=== PATIENT | female | born 1975 | race Caucasian/White ===

== ENCOUNTER 2021-10-01 12:48 | Inpatient (IN) ==
[2021-10-01 13:23] LABS: Basophils % 0.5 %; Eosinophils % 0.3 %; Hematocrit 49.9 % (35.3-44.9); Hemoglobin 15.4 g/dL (11.5-15.4); Immature Granulocytes % 0.5 % (0-4); Lymphocytes # 2.4 K/mcL (0.6-4.6); Lymphocytes % 26.7 %; Mean Corpuscular HGB Conc 30.9 g/dL (31.6-35.5); Mean Corpuscular Volume 87.4 fL (83.0-100.0); Mean Platelet Volume 10.9 fL (9.4-12.4); Monocytes # 0.7 K/mcL (0.0-1.3); Monocytes % 7.5 %; Neutrophils # 5.7 K/mcL (1.6-8.9); Platelet Count 286 K/mcL (140-400); Red Blood Count 5.71 M/mcL (3.82-4.97); Red Cell Distribution Width 14.5 % (11.5-14.5); Segmented Neutrophils % 64.5 %; White Blood Count 8.8 K/mcL (4.3-11.1)
[2021-10-01 13:46] LABS: Albumin/Globulin Ratio 1.1 (1.1-2.2); Bilirubin,Direct 0.2 mg/dL (0.0-0.2); Bilirubin,Indirect 0.8 mg/dL (0.0-1.0); Calcium 9.5 mg/dL (8.6-10.3); Globulin 3.5 g/dL (2.4-3.5); Potassium 3.5 mEq/L (3.5-5.1); Total Protein 7.5 g/dL (6.4-8.9); Troponin I 0.17 ng/mL (< 0.04)
[2021-10-01] MEDS ORDERED: *HR* Heparin 5,000 UNIT/ML VIAL IVP PRN (13:53)
[2021-10-01] MEDS ORDERED: *HR* Heparin 5,000 UNIT/ML VIAL IVP ONE (13:53)
[2021-10-01] MEDS ORDERED: Furosemide 20 MG/2 ML VIAL IVP ONE (13:59)
[2021-10-01] MEDS: Heparin 25,000UNIT/250ML 1/2NS 25,000 UNIT/250 ML IV.SOLN IVC SCH (14:06)
[2021-10-01 14:11] LABS: Heparin anti-factor XA UFH < 0.04 IU/mL (0.30-0.70)
[2021-10-01 14:12] LABS: INR 1.3; Prothrombin Time 14.7 Seconds (9.4-12.1)
[2021-10-01] MEDS ORDERED: *HR* Promethazine 25 MG/ML VIAL IM PRN (14:30)
[2021-10-01] MEDS ORDERED: Albumin 25% 25gram/100mL 25 GM/100 ML IV.SOLN IVPB ONE (14:30)
[2021-10-01] MEDS ORDERED: Acetaminophen 325 MG TABLET PO PRN (14:30)
[2021-10-01] MEDS ORDERED: Naloxone 0.4 MG/ML INJ IVP PRN (14:30)
[2021-10-01 15:58] LABS: Hematocrit 44.4 % (35.3-44.9); Hemoglobin 13.9 g/dL (11.5-15.4); Mean Corpuscular HGB Conc 31.3 g/dL (31.6-35.5); Mean Corpuscular Volume 86.2 fL (83.0-100.0); Mean Platelet Volume 11.1 fL (9.4-12.4); Platelet Count 261 K/mcL (140-400); Red Blood Count 5.15 M/mcL (3.82-4.97); Red Cell Distribution Width 14.5 % (11.5-14.5)
[2021-10-01] MEDS ORDERED: Perflutren Lipid Microsphere 1.3 ML in 0.9 % Sodium Chloride 8.7 ML IVP PRN (16:16)
[2021-10-01] MEDS ORDERED: Furosemide 40 MG/4 ML VIAL IVP SCH (17:00)
[2021-10-01] MEDS: Aspirin 81 MG TAB.CHEW PO SCH (17:14)
[2021-10-01] MEDS ORDERED: Metoclopramide 10 MG/2 ML VIAL IVP PRN (17:34)
[2021-10-01] MEDS: hydrOXYzine pamoate 25 MG CAPSULE PO SCH (20:13)
[2021-10-01] MEDS: *HR* OxyCODONE/APAP 5/325 TABLET PO PRN (20:14)
[2021-10-01] MEDS: Gabapentin 400 MG CAPSULE PO SCH (20:14)
[2021-10-01] MEDS: tiZANidine 4 MG TABLET PO SCH (20:14)
[2021-10-01] MEDS: Furosemide 40 MG/4 ML VIAL IVP SCH (20:17)
[2021-10-01] MEDS ORDERED: QUEtiapine Fumarate 300 MG TABLET PO SCH (21:00)
[2021-10-01] MEDS ORDERED: NON-FORMULARY MEDICATION 1 EACH EACH (Atorvastatin Calcium [Lipitor] 80 MG Tablet) PO SCH (21:00)
[2021-10-01] MEDS: carvediloL 6.25 MG TABLET PO SCH (23:02)
[2021-10-02] MEDS: *HR* Heparin 5,000 UNIT/ML VIAL IVP PRN ×2 (00:22→17:53)
[2021-10-02 05:30] LABS: Amphetamine Screen,Urine Positive ng/mL (Cutoff=1000); Barbiturate Screen,Urine Negative ng/mL (Cutoff=200); Benzodiazepines Screen,Urine Negative ng/mL (Cutoff=200); Cannabinoid Screen,Urine Positive ng/mL (Cutoff = 50); Cocaine Screen,Urine Negative ng/mL (Cutoff= 300); Opiate Screen,Urine Negative ng/mL (Cutoff=300); Phencyclidine Screen,Urine Negative ng/mL (Cutoff=25)
[2021-10-02 06:28] LABS: Basophils % 0.7 %; Eosinophils # 0.1 K/mcL (0.0-0.6); Eosinophils % 2.3 %; Hematocrit 38.5 % (35.3-44.9); Immature Granulocytes % 0.3 % (0-4); Lymphocytes # 2.8 K/mcL (0.6-4.6); Mean Corpuscular HGB Conc 31.2 g/dL (31.6-35.5); Mean Corpuscular Hemoglobin 26.9 pg (28.0-33.3); Mean Corpuscular Volume 86.3 fL (83.0-100.0); Mean Platelet Volume 10.9 fL (9.4-12.4); Monocytes # 0.6 K/mcL (0.0-1.3); Monocytes % 10.6 %; Neutrophils # 2.1 K/mcL (1.6-8.9); Platelet Count 179 K/mcL (140-400); Red Blood Count 4.46 M/mcL (3.82-4.97); Red Cell Distribution Width 14.4 % (11.5-14.5); Segmented Neutrophils % 37.1 %; White Blood Count 5.7 K/mcL (4.3-11.1)
[2021-10-02 06:48] LABS: Calcium 8.6 mg/dL (8.6-10.3); Potassium 3.2 mEq/L (3.5-5.1)
[2021-10-02] MEDS: Gabapentin 400 MG CAPSULE PO SCH ×4 (09:25→20:55)
[2021-10-02] MEDS: hydrOXYzine pamoate 25 MG CAPSULE PO SCH ×3 (09:26→20:56)
[2021-10-02] MEDS: tiZANidine 4 MG TABLET PO SCH ×3 (09:26→17:53)
[2021-10-02] MEDS: PARoxetine 20 MG TABLET PO SCH (09:26)
[2021-10-02] MEDS: Isosorbide MONOnitrate (24 HR) 30 MG TAB.ER.24H PO SCH (10:40)
[2021-10-02] MEDS: Aspirin 81 MG TAB.CHEW PO SCH (10:40)
[2021-10-02] MEDS: Loratadine 10 MG TABLET PO SCH (10:40)
[2021-10-02] MEDS: carvediloL 6.25 MG TABLET PO SCH ×2 (10:44→16:18)
[2021-10-02] MEDS: Furosemide 40 MG/4 ML VIAL IVP SCH ×2 (10:44→16:18)
[2021-10-02] MEDS: Heparin 25,000UNIT/250ML 1/2NS 25,000 UNIT/250 ML IV.SOLN IVC SCH ×2 (12:50→18:03)
[2021-10-02] MEDS: QUEtiapine Fumarate 300 MG TABLET PO SCH (20:55)
[2021-10-02] MEDS: *HR* HYDROcodone/Acet 5/325 mg TABLET PO PRN (20:56)
[2021-10-03 00:56] LABS: Basophils % 0.5 %; Eosinophils # 0.1 K/mcL (0.0-0.6); Eosinophils % 1.6 %; Hematocrit 42.8 % (35.3-44.9); Hemoglobin 13.3 g/dL (11.5-15.4); Immature Granulocytes % 0.3 % (0-4); Lymphocytes # 2.4 K/mcL (0.6-4.6); Lymphocytes % 33.1 %; Mean Corpuscular HGB Conc 31.1 g/dL (31.6-35.5); Mean Corpuscular Hemoglobin 26.5 pg (28.0-33.3); Mean Corpuscular Volume 85.4 fL (83.0-100.0); Mean Platelet Volume 11.5 fL (9.4-12.4); Monocytes # 0.5 K/mcL (0.0-1.3); Monocytes % 6.8 %; Neutrophils # 4.2 K/mcL (1.6-8.9); Platelet Count 231 K/mcL (140-400); Red Blood Count 5.01 M/mcL (3.82-4.97); Red Cell Distribution Width 14.5 % (11.5-14.5); Segmented Neutrophils % 57.7 %; White Blood Count 7.3 K/mcL (4.3-11.1)
[2021-10-03 01:17] LABS: Albumin 3.2 g/dL (3.5-5.7); Albumin/Globulin Ratio 1.3 (1.1-2.2); Bilirubin,Total 0.7 mg/dL (0.3-1.0); Calcium 8.5 mg/dL (8.6-10.3); Globulin 2.5 g/dL (2.4-3.5); Potassium 3.8 mEq/L (3.5-5.1); Total Protein 5.7 g/dL (6.4-8.9)
[2021-10-03] MEDS: *HR* OxyCODONE/APAP 5/325 TABLET PO PRN ×2 (03:10→12:53)
[2021-10-03] MEDS: Furosemide 40 MG/4 ML VIAL IVP SCH (08:12)
[2021-10-03] MEDS: Loratadine 10 MG TABLET PO SCH (08:13)
[2021-10-03] MEDS: tiZANidine 4 MG TABLET PO SCH ×2 (08:13→15:33)
[2021-10-03] MEDS: Isosorbide MONOnitrate (24 HR) 30 MG TAB.ER.24H PO SCH (08:13)
[2021-10-03] MEDS: Aspirin 81 MG TAB.CHEW PO SCH (08:13)
[2021-10-03] MEDS: Gabapentin 400 MG CAPSULE PO SCH ×4 (08:13→22:13)
[2021-10-03] MEDS: hydrOXYzine pamoate 25 MG CAPSULE PO SCH ×3 (08:14→22:14)
[2021-10-03] MEDS: PARoxetine 20 MG TABLET PO SCH (08:14)
[2021-10-03] MEDS: carvediloL 6.25 MG TABLET PO SCH (08:14)
[2021-10-03 13:24] LABS: Heparin anti-factor XA UFH 0.37 IU/mL (0.30-0.70)
[2021-10-03 14:58] LABS: INR 1.7; Prothrombin Time 18.6 Seconds (9.4-12.1)
[2021-10-03] MEDS: Heparin 25,000UNIT/250ML 1/2NS 25,000 UNIT/250 ML IV.SOLN IVC SCH (15:29)
[2021-10-03] MEDS: Furosemide 20 MG/2 ML VIAL IVP SCH (15:35)
[2021-10-03] MEDS ORDERED: tiZANidine 4 MG TABLET PO PRN (15:53)
[2021-10-03] MEDS ORDERED: Metoprolol XL (24 HR) Succ 25 MG TAB.ER.24H PO ONE (18:00)
[2021-10-03] MEDS ORDERED: *HR* Warfarin 5 MG TABLET PO ONE (18:00)
[2021-10-03] MEDS ORDERED: Warfarin perPT PO PRN (18:00)
[2021-10-03] MEDS: *HR* Heparin 5,000 UNIT/ML VIAL IVP PRN (20:20)
[2021-10-03] MEDS ORDERED: Albumin 25% 25gram/100mL 25 GM/100 ML IV.SOLN IVPB ONE (20:42)
[2021-10-03] MEDS: QUEtiapine Fumarate 300 MG TABLET PO SCH (22:13)
[2021-10-04 00:07] LABS: ABG Base Excess -4 mEq/L (-2 to 3); ABG HCO3 19 mEq/L (21-27); ABG Oxygen Saturation 100 % (95-98); ABG PCO2 29 mmHg (35-45); ABG PH 7.43 pH Units (7.32-7.45); ABG PO2 293 mmHg (85-104); ABG TCO2 20 mEq/L (20-26)
[2021-10-04] MEDS ORDERED: 0.9 % Sodium Chloride 500 ML IVC ONE ×2 (00:55→05:55)
[2021-10-04] MEDS ORDERED: DOBUTamine 1,000 MG/250 ML BAG IVC SCH (01:00)
[2021-10-04] MEDS: Heparin 25,000UNIT/250ML 1/2NS 25,000 UNIT/250 ML IV.SOLN IVC SCH ×2 (01:04→22:20)
[2021-10-04] MEDS ORDERED: MethylPREDNISolone 40 MG/ML VIAL IVP ONE (02:40)
[2021-10-04 03:25] LABS: Basophils % 0.3 %; Eosinophils % 0.1 %; Hematocrit 42.3 % (35.3-44.9); Hemoglobin 13.3 g/dL (11.5-15.4); Immature Granulocytes % 0.5 % (0-4); Lymphocytes # 1.5 K/mcL (0.6-4.6); Lymphocytes % 14.8 %; Mean Corpuscular HGB Conc 31.4 g/dL (31.6-35.5); Mean Corpuscular Hemoglobin 27.1 pg (28.0-33.3); Mean Corpuscular Volume 86.3 fL (83.0-100.0); Monocytes # 0.6 K/mcL (0.0-1.3); Monocytes % 6.1 %; Neutrophils # 7.7 K/mcL (1.6-8.9); Platelet Count 165 K/mcL (140-400); Red Cell Distribution Width 14.6 % (11.5-14.5); Segmented Neutrophils % 78.2 %; White Blood Count 9.9 K/mcL (4.3-11.1)
[2021-10-04 03:36] LABS: Heparin anti-factor XA UFH 0.61 IU/mL (0.30-0.70)
[2021-10-04 03:37] LABS: INR 1.9; Prothrombin Time 21.6 Seconds (9.4-12.1)
[2021-10-04 03:38] LABS: VBG Ionized Calcium 0.96 mmol/L (1.15-1.35)
[2021-10-04] MEDS ORDERED: Isovue-370 500 ML BOTTLE IVP ONE (04:25)
[2021-10-04 05:14] LABS: ABG Base Excess -4 mEq/L (-2 to 3); ABG HCO3 18 mEq/L (21-27); ABG Oxygen Saturation 100 % (95-98); ABG PCO2 25 mmHg (35-45); ABG PH 7.46 pH Units (7.32-7.45); ABG PO2 536 mmHg (85-104); ABG TCO2 19 mEq/L (20-26)
[2021-10-04 05:21] LABS: Troponin I 0.13 ng/mL (< 0.04)
[2021-10-04] MEDS: Calcium Gluconate 1gm/50mL 1 GM/50 ML BAG IVPB SCH ×2 (05:32→06:16)
[2021-10-04 05:47] LABS: Albumin 3.2 g/dL (3.5-5.7); Albumin/Globulin Ratio 1.5 (1.1-2.2); Bilirubin,Total 0.9 mg/dL (0.3-1.0); Calcium 8.5 mg/dL (8.6-10.3); Globulin 2.1 g/dL (2.4-3.5); Potassium 4.2 mEq/L (3.5-5.1); Total Protein 5.3 g/dL (6.4-8.9)
[2021-10-04 07:44] LABS: Albumin 3.2 g/dL (3.5-5.7); Albumin/Globulin Ratio 1.5 (1.1-2.2); Bilirubin,Direct 0.4 mg/dL (0.0-0.2); Bilirubin,Indirect 0.6 mg/dL (0.0-1.0); Globulin 2.1 g/dL (2.4-3.5); Magnesium 1.8 mg/dL (1.6-2.6); Phosphorous 5.9 mg/dL (2.7-4.5); Total Protein 5.3 g/dL (6.4-8.9)
[2021-10-04] MEDS ORDERED: Lidocaine -MPF 1% 5 ML AMPUL INFILT ONE (07:46)
[2021-10-04 08:05] LABS: Magnesium 1.8 mg/dL (1.6-2.6)
[2021-10-04] MEDS: Furosemide 20 MG/2 ML VIAL IVP SCH ×2 (08:37→16:29)
[2021-10-04] MEDS: Loratadine 10 MG TABLET PO SCH (08:37)
[2021-10-04] MEDS: hydrOXYzine pamoate 25 MG CAPSULE PO SCH ×3 (08:37→19:49)
[2021-10-04] MEDS: Gabapentin 400 MG CAPSULE PO SCH ×4 (08:37→19:50)
[2021-10-04] MEDS: PARoxetine 20 MG TABLET PO SCH (08:37)
[2021-10-04] MEDS: Aspirin 81 MG TAB.CHEW PO SCH (08:37)
[2021-10-04] MEDS: Lactulose Oral Soln 20 GM/30 ML UDC PO SCH ×2 (08:41→19:49)
[2021-10-04] MEDS: Isosorbide MONOnitrate (24 HR) 30 MG TAB.ER.24H PO SCH (08:47)
[2021-10-04] MEDS: Metoprolol XL (24 HR) Succ 25 MG TAB.ER.24H PO SCH (08:47)
[2021-10-04 14:33] LABS: Bilirubin,Urine Negative (Negative); Blood,Urine Negative (Negative); Clarity,Urine Clear (Clear); Color,Urine Light-Yellow (Yellow); Glucose,Urine (UA) Normal (Normal); Ketones,Urine Negative (Negative); Leukocyte Esterase,Urine Negative (Negative); Nitrite,Urine Negative (Negative); PH,Urine 5.5 pH Units (5.0-8.0); Protein,Urine Negative (Neg-Trace); Specific Gravity,Urine 1.026 (1.010-1.025); Urobilinogen,Urine Normal (Normal)
[2021-10-04] MEDS: *HR* OxyCODONE/APAP 5/325 TABLET PO PRN (14:39)
[2021-10-04 14:48] LABS: Hyaline Casts,Urine Few per lpf (None Seen); Mucus,Urine Few per lpf (None-Few); RBC,Urine 0-3 per hpf (0-3); Squamous Epithelial Cell,Urine Few per hpf (None-Few); WBC,Urine 0-3 per hpf (0-3)
[2021-10-04] MEDS ORDERED: *HR* Warfarin 5 MG TABLET PO ONE (18:00)
[2021-10-04] MEDS: QUEtiapine Fumarate 300 MG TABLET PO SCH (19:50)
[2021-10-05 02:01] LABS: Heparin anti-factor XA UFH 0.4 IU/mL (0.30-0.70)
[2021-10-05 02:02] LABS: INR 1.8; Prothrombin Time 20.4 Seconds (9.4-12.1)
[2021-10-05] MEDS: *HR* OxyCODONE/APAP 5/325 TABLET PO PRN ×3 (03:15→16:59)
[2021-10-05 03:46] LABS: Basophils % 0.1 %; Hematocrit 41.3 % (35.3-44.9); Hemoglobin 13.2 g/dL (11.5-15.4); Immature Granulocytes % 0.5 % (0-4); Lymphocytes % 10.7 %; Mean Corpuscular Volume 84.5 fL (83.0-100.0); Monocytes # 1.1 K/mcL (0.0-1.3); Monocytes % 5.8 %; Neutrophils # 15.2 K/mcL (1.6-8.9); Platelet Count 266 K/mcL (140-400); Red Blood Count 4.89 M/mcL (3.82-4.97); Red Cell Distribution Width 14.6 % (11.5-14.5); Segmented Neutrophils % 82.9 %
[2021-10-05 03:46] LABS: VBG Ionized Calcium 1.16 mmol/L (1.15-1.35)
[2021-10-05 03:53] LABS: White Blood Count 18.3 K/mcL (4.3-11.1)
[2021-10-05 04:24] LABS: Albumin 3.6 g/dL (3.5-5.7); Albumin/Globulin Ratio 1.4 (1.1-2.2); Bilirubin,Total 0.5 mg/dL (0.3-1.0); Calcium 9.2 mg/dL (8.6-10.3); Globulin 2.5 g/dL (2.4-3.5); Magnesium 2.2 mg/dL (1.6-2.6); Potassium 3.6 mEq/L (3.5-5.1); Total Protein 6.1 g/dL (6.4-8.9); Troponin I 0.21 ng/mL (< 0.04)
[2021-10-05] MEDS: Potassium Chloride 40 MEQ/200 ML BAG IVPB PRN ×2 (05:31→06:33)
[2021-10-05] MEDS ORDERED: Calcium Gluconate 1gm/50mL 1 GM/50 ML BAG IVPB PRN (06:00)
[2021-10-05] MEDS: Metoprolol XL (24 HR) Succ 25 MG TAB.ER.24H PO SCH (09:48)
[2021-10-05] MEDS: PARoxetine 20 MG TABLET PO SCH (10:43)
[2021-10-05] MEDS: Gabapentin 400 MG CAPSULE PO SCH (10:44)
[2021-10-05] MEDS: hydrOXYzine pamoate 25 MG CAPSULE PO SCH ×3 (10:44→21:24)
[2021-10-05] MEDS: Isosorbide MONOnitrate (24 HR) 30 MG TAB.ER.24H PO SCH (10:45)
[2021-10-05] MEDS: Furosemide 20 MG/2 ML VIAL IVP SCH (10:45)
[2021-10-05] MEDS: Lactulose Oral Soln 20 GM/30 ML UDC PO SCH ×2 (10:45→21:24)
[2021-10-05] MEDS: Aspirin 81 MG TAB.CHEW PO SCH (10:45)
[2021-10-05] MEDS: Loratadine 10 MG TABLET PO SCH (10:45)
[2021-10-05] MEDS: Gabapentin 300 MG CAPSULE PO SCH ×2 (15:21→21:23)
[2021-10-05] MEDS ORDERED: *HR* Warfarin 5 MG TABLET PO ONE (18:00)
[2021-10-05] MEDS: QUEtiapine Fumarate 300 MG TABLET PO SCH (21:23)
[2021-10-05] MEDS: Heparin 25,000UNIT/250ML 1/2NS 25,000 UNIT/250 ML IV.SOLN IVC SCH (23:35)
[2021-10-06 04:01] LABS: VBG Ionized Calcium 1.18 mmol/L (1.15-1.35)
[2021-10-06 04:04] LABS: Basophils % 0.2 %; Eosinophils % 0.2 %; Hematocrit 39.2 % (35.3-44.9); Hemoglobin 12.3 g/dL (11.5-15.4); Immature Granulocytes % 0.4 % (0-4); Lymphocytes # 2.5 K/mcL (0.6-4.6); Lymphocytes % 20.4 %; Mean Corpuscular HGB Conc 31.4 g/dL (31.6-35.5); Monocytes # 0.9 K/mcL (0.0-1.3); Monocytes % 7.6 %; Neutrophils # 8.9 K/mcL (1.6-8.9); Platelet Count 222 K/mcL (140-400); Red Blood Count 4.56 M/mcL (3.82-4.97); Red Cell Distribution Width 14.6 % (11.5-14.5); Segmented Neutrophils % 71.2 %; White Blood Count 12.5 K/mcL (4.3-11.1)
[2021-10-06 04:08] LABS: INR 4.2
[2021-10-06 04:09] LABS: Prothrombin Time 46.8 Seconds (9.4-12.1)
[2021-10-06 04:23] LABS: Albumin 3.2 g/dL (3.5-5.7); Albumin/Globulin Ratio 1.3 (1.1-2.2); Bilirubin,Total 0.7 mg/dL (0.3-1.0); Calcium 8.6 mg/dL (8.6-10.3); Globulin 2.4 g/dL (2.4-3.5); Magnesium 2.1 mg/dL (1.6-2.6); Phosphorous 2.9 mg/dL (2.7-4.5); Potassium 3.4 mEq/L (3.5-5.1); Total Protein 5.6 g/dL (6.4-8.9); Troponin I 0.2 ng/mL (< 0.04)
[2021-10-06] MEDS: Potassium Chloride 40 MEQ/200 ML BAG IVPB PRN ×2 (05:34→06:36)
[2021-10-06] MEDS: hydrOXYzine pamoate 25 MG CAPSULE PO SCH ×3 (08:21→20:31)
[2021-10-06] MEDS: Gabapentin 300 MG CAPSULE PO SCH ×3 (08:21→20:31)
[2021-10-06] MEDS: Isosorbide MONOnitrate (24 HR) 30 MG TAB.ER.24H PO SCH (08:21)
[2021-10-06] MEDS: Aspirin 81 MG TAB.CHEW PO SCH (08:22)
[2021-10-06] MEDS: *HR* HYDROcodone/Acet 5/325 mg TABLET PO PRN ×3 (08:22→21:31)
[2021-10-06] MEDS: Loratadine 10 MG TABLET PO SCH (08:22)
[2021-10-06] MEDS: Lactulose Oral Soln 20 GM/30 ML UDC PO SCH ×2 (08:22→20:30)
[2021-10-06] MEDS: PARoxetine 20 MG TABLET PO SCH (08:22)
[2021-10-06] MEDS: Metoprolol XL (24 HR) Succ 25 MG TAB.ER.24H PO SCH (08:23)
[2021-10-06] MEDS ORDERED: *HR* Heparin 5,000 UNIT/ML VIAL IVP PRN ×2 (12:55)
[2021-10-06] MEDS ORDERED: Heparin 25,000UNIT/250ML 1/2NS 25,000 UNIT/250 ML IV.SOLN IVC SCH (13:00)
[2021-10-06 18:40] LABS: Heparin anti-factor XA UFH 0.27 IU/mL (0.30-0.70)
[2021-10-06 18:49] LABS: Prothrombin Time 65.7 Seconds (9.4-12.1)
[2021-10-06] MEDS: QUEtiapine Fumarate 300 MG TABLET PO SCH (20:31)
[2021-10-07] MEDS ORDERED: Warfarin perPT PO PRN (02:41)
[2021-10-07] MEDS ORDERED: Perflutren Lipid Microsphere 1.3 ML in 0.9 % Sodium Chloride 8.7 ML IVP PRN (02:41)
[2021-10-07] MEDS ORDERED: Heparin 25,000UNIT/250ML 1/2NS 25,000 UNIT/250 ML IV.SOLN IVC SCH (02:41)
[2021-10-07] MEDS ORDERED: Acetaminophen 325 MG TABLET PO PRN (02:41)
[2021-10-07] MEDS ORDERED: *HR* Heparin 5,000 UNIT/ML VIAL IVP PRN ×2 (02:41)
[2021-10-07] MEDS ORDERED: Potassium Chloride 40 MEQ/200 ML BAG IVPB PRN (02:41)
[2021-10-07] MEDS ORDERED: Calcium Gluconate 1gm/50mL 1 GM/50 ML BAG IVPB PRN (02:41)
[2021-10-07] MEDS ORDERED: *HR* Promethazine 25 MG/ML VIAL IM PRN (02:41)
[2021-10-07] MEDS ORDERED: tiZANidine 4 MG TABLET PO PRN (02:41)
[2021-10-07] MEDS ORDERED: Metoclopramide 10 MG/2 ML VIAL IVP PRN (02:41)
[2021-10-07] MEDS ORDERED: Naloxone 0.4 MG/ML INJ IVP PRN (02:41)
[2021-10-07] MEDS: *HR* OxyCODONE/APAP 5/325 TABLET PO PRN ×2 (03:08→11:28)
[2021-10-07 03:30] LABS: Hematocrit 38.7 % (35.3-44.9); Hemoglobin 11.7 g/dL (11.5-15.4); Mean Corpuscular HGB Conc 30.2 g/dL (31.6-35.5); Mean Corpuscular Hemoglobin 26.5 pg (28.0-33.3); Mean Corpuscular Volume 87.8 fL (83.0-100.0); Mean Platelet Volume 11.7 fL (9.4-12.4); Platelet Count 202 K/mcL (140-400); Red Blood Count 4.41 M/mcL (3.82-4.97); Red Cell Distribution Width 14.6 % (11.5-14.5); White Blood Count 9.1 K/mcL (4.3-11.1)
[2021-10-07 04:12] LABS: INR 5.1; Prothrombin Time 56.3 Seconds (9.4-12.1)
[2021-10-07 04:20] LABS: BUN/Creatinine Ratio 21 (6-26); Blood Urea Nitrogen 20 mg/dL (6-20); Calcium 8.8 mg/dL (8.6-10.3); Carbon Dioxide 28 mEq/L (23-29); Chloride 105 mEq/L (98-107); Glucose 100 mg/dL (70-105); Magnesium 2.1 mg/dL (1.6-2.6); Osmolality,Calculated 287 (280-300); Potassium 4.7 mEq/L (3.5-5.1); Sodium 137 mEq/L (136-145); eGFR For African Americans > 60 (> 60); eGFR For Non-African Americans > 60 (> 60)
[2021-10-07] MEDS: Loratadine 10 MG TABLET PO SCH (07:34)
[2021-10-07] MEDS: Lactulose Oral Soln 20 GM/30 ML UDC PO SCH ×2 (07:34→20:20)
[2021-10-07] MEDS: Gabapentin 300 MG CAPSULE PO SCH ×3 (07:35→20:21)
[2021-10-07] MEDS: Aspirin 81 MG TAB.CHEW PO SCH (07:35)
[2021-10-07] MEDS: hydrOXYzine pamoate 25 MG CAPSULE PO SCH ×3 (07:36→20:21)
[2021-10-07] MEDS: PARoxetine 20 MG TABLET PO SCH (07:36)
[2021-10-07] MEDS: *HR* HYDROcodone/Acet 5/325 mg TABLET PO PRN ×2 (07:45→20:20)
[2021-10-07] MEDS: QUEtiapine Fumarate 300 MG TABLET PO SCH (20:21)
[2021-10-08 03:55] LABS: Hematocrit 38.5 % (35.3-44.9); Hemoglobin 11.8 g/dL (11.5-15.4); Mean Corpuscular HGB Conc 30.6 g/dL (31.6-35.5); Mean Corpuscular Hemoglobin 26.6 pg (28.0-33.3); Mean Corpuscular Volume 86.9 fL (83.0-100.0); Mean Platelet Volume 11.7 fL (9.4-12.4); Platelet Count 199 K/mcL (140-400); Red Blood Count 4.43 M/mcL (3.82-4.97); Red Cell Distribution Width 14.6 % (11.5-14.5); White Blood Count 9.1 K/mcL (4.3-11.1)
[2021-10-08 04:19] LABS: BUN/Creatinine Ratio 17 (6-26); Blood Urea Nitrogen 15 mg/dL (6-20); Calcium 8.8 mg/dL (8.6-10.3); Carbon Dioxide 25 mEq/L (23-29); Chloride 105 mEq/L (98-107); Glucose 91 mg/dL (70-105); Magnesium 2.1 mg/dL (1.6-2.6); Osmolality,Calculated 280 (280-300); Sodium 135 mEq/L (136-145); eGFR For African Americans > 60 (> 60); eGFR For Non-African Americans > 60 (> 60)
[2021-10-08 05:15] LABS: Prothrombin Time 43.7 Seconds (9.4-12.1)
[2021-10-08] MEDS: *HR* HYDROcodone/Acet 5/325 mg TABLET PO PRN ×4 (05:34→23:09)
[2021-10-08] MEDS: Loratadine 10 MG TABLET PO SCH (07:27)
[2021-10-08] MEDS: Lactulose Oral Soln 20 GM/30 ML UDC PO SCH ×2 (07:27→21:02)
[2021-10-08] MEDS: Aspirin 81 MG TAB.CHEW PO SCH (07:27)
[2021-10-08] MEDS: PARoxetine 20 MG TABLET PO SCH (07:27)
[2021-10-08] MEDS: hydrOXYzine pamoate 25 MG CAPSULE PO SCH ×3 (07:27→21:03)
[2021-10-08] MEDS: Gabapentin 300 MG CAPSULE PO SCH ×2 (07:28→14:54)
[2021-10-08] MEDS: Gabapentin 400 MG CAPSULE PO SCH (21:02)
[2021-10-08] MEDS: QUEtiapine Fumarate 300 MG TABLET PO SCH (21:03)
[2021-10-09 04:56] LABS: Hematocrit 38.9 % (35.3-44.9); Hemoglobin 11.8 g/dL (11.5-15.4); Mean Corpuscular HGB Conc 30.3 g/dL (31.6-35.5); Mean Corpuscular Hemoglobin 26.3 pg (28.0-33.3); Mean Corpuscular Volume 86.6 fL (83.0-100.0); Mean Platelet Volume 11.8 fL (9.4-12.4); Platelet Count 209 K/mcL (140-400); Red Blood Count 4.49 M/mcL (3.82-4.97); Red Cell Distribution Width 14.5 % (11.5-14.5); White Blood Count 9.1 K/mcL (4.3-11.1)
[2021-10-09 05:03] LABS: INR 2.7; Prothrombin Time 30.2 Seconds (9.4-12.1)
[2021-10-09 05:10] LABS: BUN/Creatinine Ratio 14 (6-26); Blood Urea Nitrogen 14 mg/dL (6-20); Calcium 8.9 mg/dL (8.6-10.3); Carbon Dioxide 28 mEq/L (23-29); Chloride 103 mEq/L (98-107); Glucose 103 mg/dL (70-105); Magnesium 2.1 mg/dL (1.6-2.6); Osmolality,Calculated 279 (280-300); Potassium 4.8 mEq/L (3.5-5.1); Sodium 134 mEq/L (136-145); eGFR For African Americans > 60 (> 60); eGFR For Non-African Americans > 60 (> 60)
[2021-10-09] MEDS: Lactulose Oral Soln 20 GM/30 ML UDC PO SCH ×3 (07:56→20:38)
[2021-10-09] MEDS: Gabapentin 400 MG CAPSULE PO SCH ×3 (07:56→20:37)
[2021-10-09] MEDS: hydrOXYzine pamoate 25 MG CAPSULE PO SCH ×3 (07:57→20:37)
[2021-10-09] MEDS: *HR* HYDROcodone/Acet 5/325 mg TABLET PO PRN ×3 (07:57→20:37)
[2021-10-09] MEDS: Aspirin 81 MG TAB.CHEW PO SCH (07:57)
[2021-10-09] MEDS: PARoxetine 20 MG TABLET PO SCH (07:57)
[2021-10-09] MEDS: Loratadine 10 MG TABLET PO SCH (07:57)
[2021-10-09] MEDS: Furosemide 40 MG TABLET PO SCH ×2 (09:52→15:44)
[2021-10-09] MEDS ORDERED: *HR* Warfarin 2 MG TABLET PO ONE (18:00)
[2021-10-09] MEDS: QUEtiapine Fumarate 300 MG TABLET PO SCH (20:37)
[2021-10-09] MEDS: Apixaban 5 MG TABLET PO SCH (20:38)
[2021-10-09 23:03] VITALS: O2SAT 96
[2021-10-10 03:19] LABS: INR 2.7; Prothrombin Time 30.4 Seconds (9.4-12.1)
[2021-10-10 05:04] VITALS: TEMP 98.6
[2021-10-10] MEDS: *HR* HYDROcodone/Acet 5/325 mg TABLET PO PRN (05:56)
[2021-10-10] MEDS: Loratadine 10 MG TABLET PO SCH (07:56)
[2021-10-10] MEDS: hydrOXYzine pamoate 25 MG CAPSULE PO SCH (07:56)
[2021-10-10] MEDS: Gabapentin 400 MG CAPSULE PO SCH (07:56)
[2021-10-10] MEDS: Furosemide 40 MG TABLET PO SCH (07:56)
[2021-10-10] MEDS: Aspirin 81 MG TAB.CHEW PO SCH (07:56)
[2021-10-10] MEDS: Lactulose Oral Soln 20 GM/30 ML UDC PO SCH (07:56)
[2021-10-10] MEDS: Apixaban 5 MG TABLET PO SCH (07:56)
[2021-10-10] MEDS: PARoxetine 20 MG TABLET PO SCH (07:57)
[2021-10-10 08:15] VITALS: BP 112/74; PULSE 66
[2021-10-10 08:35] LABS: Basophils % 0.4 %; Eosinophils # 0.2 K/mcL (0.0-0.6); Eosinophils % 2.1 %; Hematocrit 38.3 % (35.3-44.9); Hemoglobin 11.9 g/dL (11.5-15.4); Immature Granulocytes % 0.5 % (0-4); Lymphocytes # 2.7 K/mcL (0.6-4.6); Lymphocytes % 28.1 %; Mean Corpuscular HGB Conc 31.1 g/dL (31.6-35.5); Mean Corpuscular Hemoglobin 26.7 pg (28.0-33.3); Mean Corpuscular Volume 86.1 fL (83.0-100.0); Mean Platelet Volume 11.2 fL (9.4-12.4); Monocytes # 1.2 K/mcL (0.0-1.3); Neutrophils # 5.5 K/mcL (1.6-8.9); Platelet Count 213 K/mcL (140-400); Red Blood Count 4.45 M/mcL (3.82-4.97); Red Cell Distribution Width 14.7 % (11.5-14.5); Segmented Neutrophils % 56.9 %; White Blood Count 9.7 K/mcL (4.3-11.1)
[2021-10-10 08:54] LABS: BUN/Creatinine Ratio 10 (6-26); Blood Urea Nitrogen 10 mg/dL (6-20); Calcium 8.7 mg/dL (8.6-10.3); Carbon Dioxide 28 mEq/L (23-29); Chloride 102 mEq/L (98-107); Glucose 136 mg/dL (70-105); Osmolality,Calculated 283 (280-300); Potassium 4.6 mEq/L (3.5-5.1); Sodium 136 mEq/L (136-145); eGFR For African Americans > 60 (> 60); eGFR For Non-African Americans 58 (> 60)
[2021-10-10] MEDS ORDERED: Metoprolol XL (24 HR) Succ 25 MG TAB.ER.24H PO SCH (09:00)
== END 2021-10-10 11:07 | disposition home or self-care (01) | DRG 194 ==
LOC: 3BNU 12:48 → EMEROOARM 12:48 → SUATTDRO 14:13 → 3BNU 14:47 → SUATTDRO 10-03 07:40 → ICNU 10-03 23:47 → 2ANU 10-07 12:08
PROVIDERS: ADMIT Internal Medicine; ATTEND Hospitalist

== ENCOUNTER 2021-11-02 10:41 | Inpatient (IN) ==
[2021-11-02] MEDS ORDERED: *HR* LORazepam 2 MG/ML VIAL IVP STA (11:03)
[2021-11-02 11:17] LABS: Basophils # 0.1 K/mcL (0.0-0.2); Basophils % 0.5 %; Hematocrit 50.5 % (35.3-44.9); Hemoglobin 15.1 g/dL (11.5-15.4); Immature Granulocytes % 1.9 % (0-4); Lymphocytes # 2.2 K/mcL (0.6-4.6); Mean Corpuscular HGB Conc 29.9 g/dL (31.6-35.5); Mean Corpuscular Hemoglobin 25.6 pg (28.0-33.3); Mean Corpuscular Volume 85.6 fL (83.0-100.0); Mean Platelet Volume 11.1 fL (9.4-12.4); Monocytes # 1.1 K/mcL (0.0-1.3); Monocytes % 7.8 %; Neutrophils # 10.4 K/mcL (1.6-8.9); Nucleated Red Blood Cells 0.1 /100 WBC (0); Platelet Count 271 K/mcL (140-400); Red Cell Distribution Width 15.9 % (11.5-14.5); Segmented Neutrophils % 73.8 %
[2021-11-02 11:44] LABS: Troponin I 0.08 ng/mL (< 0.04)
[2021-11-02 11:49] LABS: Calcium 12.1 mg/dL (8.6-10.3); Potassium 4.2 mEq/L (3.5-5.1)
[2021-11-02] MEDS ORDERED: Cefepime HCl 2,000 MG in 0.9 % Sodium Chloride 10 ML IVP ONE (13:00)
[2021-11-02] MEDS ORDERED: Vancomycin 1,250 MG/262.5 ML IV.SOLN IVPB ONE (13:00)
[2021-11-02] MEDS ORDERED: Furosemide 40 MG/4 ML VIAL IVP ONE (13:09)
[2021-11-02] MEDS ORDERED: Nitroglycerin 0.4 MG TAB.SUBL SL STA (13:09)
[2021-11-02] MEDS ORDERED: Piperacillin/Tazobactam 3.375 GM in 0.9 % Sodium Chloride Mini Bag 100 ML IVPB ONE (13:43)
[2021-11-02] MEDS ORDERED: 0.9 % Sodium Chloride 500 ML IVC ONE (13:44)
[2021-11-02] MEDS ORDERED: *HR* FentaNYL (PF) 1,000 MCG/20 ML VIAL ONE (14:17)
[2021-11-02] MEDS ORDERED: *HR* Midazolam HCl 50 MG/10 ML VIAL IVC ONE (14:17)
[2021-11-02] MEDS: Midazolam HCl 50 MG/50 ML IV.SOLN IVC SCH (14:23)
[2021-11-02] MEDS: FentaNYL (PF) 1,000 MCG/100 ML IV.SOLN IVC SCH (14:25)
[2021-11-02 14:46] LABS: ABG Base Excess -19 mEq/L (-2 to 3); ABG HCO3 10 mEq/L (21-27); ABG Oxygen Saturation 97 % (95-98); ABG PCO2 32 mmHg (35-45); ABG PH 7.11 pH Units (7.32-7.45); ABG PO2 126 mmHg (85-104); ABG TCO2 11 mEq/L (20-26); Blood Gas Modality ASSIST CONTROL; Blood Gas VT 400 cc
[2021-11-02] MEDS ORDERED: Naloxone 0.4 MG/ML INJ IVP PRN (15:00)
[2021-11-02] MEDS ORDERED: 0.9 % Sodium Chloride 1,000 ML IVC SCH (15:00)
[2021-11-02] MEDS ORDERED: Artificial Tears SOLN 15 ML BOTTLE BOTH EYES PRN (15:02)
[2021-11-02] MEDS ORDERED: 0.9 % Sodium Chloride 1,000 ML IVC ONE (15:15)
[2021-11-02] MEDS ORDERED: 0.9 % Sodium Chloride 1,000 ML ONE (15:28)
[2021-11-02] MEDS ORDERED: *HR* Midazolam HCl 2 MG/2 ML VIAL IVP ONE (16:11)
[2021-11-02] MEDS ORDERED: *HR* Rocuronium Bromide 50 MG/5 ML VIAL IVP ONE (16:11)
[2021-11-02] MEDS ORDERED: *HR* Etomidate 20 MG/10 ML AMPUL IVP ONE (16:11)
[2021-11-02 17:08] LABS: Acetaminophen < 10 mcg/mL (10-20); Salicylate < 2.5 mg/dL (15.0-30.0)
[2021-11-02] MEDS: Pantoprazole 40 MG VIAL IVP SCH (17:44)
[2021-11-02] MEDS: Artificial Tears SOLN 15 ML BOTTLE BOTH EYES SCH ×2 (17:44→20:05)
[2021-11-02] MEDS ORDERED: *HR* Dextrose 50 % in Water (Syg) 50 ML SYRINGE ONE ×2 (17:50→17:51)
[2021-11-02] MEDS ORDERED: *HR* Dextrose 50 % in Water (Syg) 50 ML SYRINGE IVP ONE (17:52)
[2021-11-02] MEDS ORDERED: *HR* Dextrose 50 % in Water (Syg) 50 ML SYRINGE IVP PRN (17:53)
[2021-11-02] MEDS ORDERED: D5% in Water 1,000 ML IVC PRN (17:53)
[2021-11-02] MEDS ORDERED: Dextrose 4 GM Chewable Tablets PO PRN ×2 (17:53)
[2021-11-02] MEDS ORDERED: D10% in Water 500 ML IVC SCH (18:15)
[2021-11-02] MEDS ORDERED: *HR* Labetalol 20 MG/4 ML SYRINGE IVP PRN (18:31)
[2021-11-02 20:04] LABS: Thyroid Stimulating Hormone 3.136 mcIU/mL (0.340-5.600)
[2021-11-02] MEDS: Chlorhexidine Rinse 15 ML MOUTHWASH MM SCH (20:05)
[2021-11-02 20:45] LABS: ABG Base Excess -4 mEq/L (-2 to 3); ABG HCO3 20 mEq/L (21-27); ABG Oxygen Saturation 97 % (95-98); ABG PCO2 34 mmHg (35-45); ABG PH 7.38 pH Units (7.32-7.45); ABG PO2 94 mmHg (85-104); ABG TCO2 21 mEq/L (20-26); Blood Gas VT 450 cc
[2021-11-02] MEDS: Piperacillin/Tazobactam 3.375 GM in 0.9 % Sodium Chloride Mini Bag 100 ML IVPB SCH (21:45)
[2021-11-02 21:50] LABS: Amphetamine Screen,Urine Positive ng/mL (Cutoff=1000); Barbiturate Screen,Urine Negative ng/mL (Cutoff=200); Benzodiazepines Screen,Urine Positive ng/mL (Cutoff=200); Cannabinoid Screen,Urine Positive ng/mL (Cutoff = 50); Cocaine Screen,Urine Negative ng/mL (Cutoff= 300); Opiate Screen,Urine Negative ng/mL (Cutoff=300); Phencyclidine Screen,Urine Negative ng/mL (Cutoff=25)
[2021-11-03] MEDS: Artificial Tears SOLN 15 ML BOTTLE BOTH EYES SCH ×6 (00:03→21:11)
[2021-11-03] MEDS: Midazolam HCl 50 MG/50 ML IV.SOLN IVC SCH (00:03)
[2021-11-03] MEDS: FentaNYL (PF) 1,000 MCG/100 ML IV.SOLN IVC SCH ×2 (01:07→18:38)
[2021-11-03 04:19] LABS: ABG Base Excess 3 mEq/L (-2 to 3); ABG HCO3 27 mEq/L (21-27); ABG Oxygen Saturation 98 % (95-98); ABG PCO2 41 mmHg (35-45); ABG PH 7.44 pH Units (7.32-7.45); ABG PO2 104 mmHg (85-104); ABG TCO2 29 mEq/L (20-26); Blood Gas Modality ASSIST CONTROL; Blood Gas VT 450 cc
[2021-11-03 04:39] LABS: Mean Corpuscular HGB Conc 30.9 g/dL (31.6-35.5); Mean Corpuscular Hemoglobin 25.3 pg (28.0-33.3); Mean Corpuscular Volume 81.9 fL (83.0-100.0)
[2021-11-03 04:40] LABS: Hematocrit 43.3 % (35.3-44.9); Hemoglobin 13.4 g/dL (11.5-15.4); Mean Platelet Volume 11.4 fL (9.4-12.4); Platelet Count 191 K/mcL (140-400); Red Blood Count 5.29 M/mcL (3.82-4.97); Red Cell Distribution Width 15.5 % (11.5-14.5)
[2021-11-03 05:04] LABS: White Blood Count 33.2 K/mcL (4.3-11.1)
[2021-11-03 05:07] LABS: Alanine Aminotransferase 2608 Units/L (7-52); Albumin 3.2 g/dL (3.5-5.7); Albumin/Globulin Ratio 1.1 (1.1-2.2); Alkaline Phosphatase 95 Units/L (34-104); Aspartate Amino Transferase > 3000 Units/L (13-39); BUN/Creatinine Ratio 20 (6-26); Bilirubin,Total 1.8 mg/dL (0.3-1.0); Blood Urea Nitrogen 50 mg/dL (6-20); Calcium 9.4 mg/dL (8.6-10.3); Carbon Dioxide 32 mEq/L (23-29); Chloride 97 mEq/L (98-107); Globulin 2.8 g/dL (2.4-3.5); Glucose 156 mg/dL (70-105); Osmolality,Calculated 305 (280-300); Potassium 3.7 mEq/L (3.5-5.1); Sodium 139 mEq/L (136-145); eGFR For African Americans 26 (> 60); eGFR For Non-African Americans 21 (> 60)
[2021-11-03] MEDS: Piperacillin/Tazobactam 3.375 GM in 0.9 % Sodium Chloride Mini Bag 100 ML IVPB SCH ×3 (05:38→21:12)
[2021-11-03] MEDS: Chlorhexidine Rinse 15 ML MOUTHWASH MM SCH ×2 (07:25→21:12)
[2021-11-03] MEDS: Pantoprazole 40 MG VIAL IVP SCH (07:25)
[2021-11-03] MEDS ORDERED: Perflutren Lipid Microsphere 1.3 ML in 0.9 % Sodium Chloride 8.7 ML IVP PRN (07:42)
[2021-11-03 09:04] LABS: INR 3.7; Prothrombin Time 41.2 Seconds (9.4-12.1)
[2021-11-03 09:07] LABS: Activated Partial Thrombo Time 34.2 Seconds (26.0-36.0)
[2021-11-03 09:10] LABS: Troponin I 0.15 ng/mL (< 0.04)
[2021-11-03 09:23] LABS: Hepatitis B Surface Antigen Nonreactive (Nonreactive)
[2021-11-03] MEDS ORDERED: WATER IVC ONE ×3 (09:30→14:50)
[2021-11-03] MEDS ORDERED: D5 IVC ONE ×3 (09:30→14:50)
[2021-11-03] MEDS ORDERED: ACETYLCYSTEINE IVC ONE ×3 (09:30→14:50)
[2021-11-03] MEDS ORDERED: Dexmedetomidine HCl 400 MCG/100 ML MLS IVC SCH (09:30)
[2021-11-03 09:53] LABS: Hepatitis A Antibody IgM Nonreactive (Nonreactive); Hepatitis B Core IgM Nonreactive (Nonreactive)
[2021-11-03] MEDS: Dexmedetomidine HCl 400 MCG/100 ML MLS IVC SCH (10:25)
[2021-11-03] MEDS: Lactulose Oral Soln 20 GM/30 ML UDC PO SCH ×2 (10:25→21:12)
[2021-11-03 12:19] LABS: Hepatitis C Virus Antibody Reactive (Nonreactive)
[2021-11-03] MEDS ORDERED: 0.9 % Sodium Chloride 500 ML IVC ONE (14:03)
[2021-11-03] MEDS ORDERED: 0.9 % Sodium Chloride 500 ML ONE (14:05)
[2021-11-04] MEDS: Artificial Tears SOLN 15 ML BOTTLE BOTH EYES SCH ×7 (00:44→23:52)
[2021-11-04 04:08] LABS: ABG Base Excess 5 mEq/L (-2 to 3); ABG HCO3 28 mEq/L (21-27); ABG Oxygen Saturation 97 % (95-98); ABG PCO2 37 mmHg (35-45); ABG PH 7.49 pH Units (7.32-7.45); ABG PO2 82 mmHg (85-104); ABG TCO2 30 mEq/L (20-26); Blood Gas VT 450 cc
[2021-11-04 04:34] LABS: Hematocrit 42.9 % (35.3-44.9); Hemoglobin 13.5 g/dL (11.5-15.4); Mean Corpuscular HGB Conc 31.5 g/dL (31.6-35.5); Mean Corpuscular Hemoglobin 25.4 pg (28.0-33.3); Mean Corpuscular Volume 80.8 fL (83.0-100.0); Mean Platelet Volume 11.2 fL (9.4-12.4); Platelet Count 142 K/mcL (140-400); Red Blood Count 5.31 M/mcL (3.82-4.97); Red Cell Distribution Width 15.8 % (11.5-14.5); White Blood Count 19.7 K/mcL (4.3-11.1)
[2021-11-04] MEDS: Piperacillin/Tazobactam 3.375 GM in 0.9 % Sodium Chloride Mini Bag 100 ML IVPB SCH ×3 (05:11→20:41)
[2021-11-04 05:50] LABS: Albumin 2.5 g/dL (3.5-5.7); Bilirubin,Total 2.4 mg/dL (0.3-1.0); Calcium 8.4 mg/dL (8.6-10.3); Globulin 2.4 g/dL (2.4-3.5); Magnesium 1.8 mg/dL (1.6-2.6); Potassium 2.9 mEq/L (3.5-5.1); Total Protein 4.9 g/dL (6.4-8.9)
[2021-11-04] MEDS: Lactulose Oral Soln 20 GM/30 ML UDC PO SCH ×2 (08:53→20:41)
[2021-11-04] MEDS: Chlorhexidine Rinse 15 ML MOUTHWASH MM SCH ×2 (08:53→20:41)
[2021-11-04] MEDS: Pantoprazole 40 MG VIAL IVP SCH (08:53)
[2021-11-04] MEDS: Dexmedetomidine HCl 400 MCG/100 ML MLS IVC SCH ×3 (09:47→23:52)
[2021-11-04 20:38] LABS: ABG Base Excess 3 mEq/L (-2 to 3); ABG HCO3 28 mEq/L (21-27); ABG Oxygen Saturation 94 % (95-98); ABG PCO2 42 mmHg (35-45); ABG PH 7.43 pH Units (7.32-7.45); ABG PO2 70 mmHg (85-104); ABG TCO2 29 mEq/L (20-26)
[2021-11-05] MEDS: FentaNYL (PF) 1,000 MCG/100 ML IV.SOLN IVC SCH (02:14)
[2021-11-05 02:58] LABS: Hematocrit 43.9 % (35.3-44.9); Mean Corpuscular HGB Conc 31.9 g/dL (31.6-35.5); Mean Corpuscular Hemoglobin 25.5 pg (28.0-33.3); Mean Corpuscular Volume 80.1 fL (83.0-100.0); Mean Platelet Volume 12.7 fL (9.4-12.4); Platelet Count 124 K/mcL (140-400); Red Blood Count 5.48 M/mcL (3.82-4.97); Red Cell Distribution Width 15.7 % (11.5-14.5); White Blood Count 21.3 K/mcL (4.3-11.1)
[2021-11-05 03:11] LABS: INR 2.2; Prothrombin Time 24.6 Seconds (9.4-12.1)
[2021-11-05 03:39] LABS: Albumin 2.5 g/dL (3.5-5.7); Bilirubin,Total 3.2 mg/dL (0.3-1.0); Calcium 8.6 mg/dL (8.6-10.3); Globulin 2.5 g/dL (2.4-3.5); Magnesium 1.9 mg/dL (1.6-2.6); Potassium 3.1 mEq/L (3.5-5.1)
[2021-11-05] MEDS: Artificial Tears SOLN 15 ML BOTTLE BOTH EYES SCH ×5 (04:25→21:37)
[2021-11-05] MEDS: Piperacillin/Tazobactam 3.375 GM in 0.9 % Sodium Chloride Mini Bag 100 ML IVPB SCH ×3 (05:16→21:48)
[2021-11-05] MEDS: Chlorhexidine Rinse 15 ML MOUTHWASH MM SCH ×2 (07:13→21:00)
[2021-11-05] MEDS: Lactulose Oral Soln 20 GM/30 ML UDC PO SCH (07:13)
[2021-11-05] MEDS: Pantoprazole 40 MG VIAL IVP SCH (07:23)
[2021-11-05] MEDS ORDERED: Cholestyramine 4 GM POWD.PACK PO SCH (11:30)
[2021-11-05] MEDS ORDERED: D5% in 0.9% NACL w KCl 20 MEQ/1,000 ML MLS IVC SCH (15:00)
[2021-11-05] MEDS ORDERED: *HR* Dextrose 50 % in Water (Syg) 50 ML SYRINGE IVP PRN (15:26)
[2021-11-05] MEDS ORDERED: Artificial Tears SOLN 15 ML BOTTLE BOTH EYES PRN (15:26)
[2021-11-05] MEDS ORDERED: Dextrose 4 GM Chewable Tablets PO PRN ×2 (15:26)
[2021-11-05] MEDS ORDERED: Perflutren Lipid Microsphere 1.3 ML in 0.9 % Sodium Chloride 8.7 ML IVP PRN (15:26)
[2021-11-05] MEDS ORDERED: Naloxone 0.4 MG/ML INJ IVP PRN (15:26)
[2021-11-05] MEDS ORDERED: D5% in Water 1,000 ML IVC PRN (15:26)
[2021-11-05] MEDS: Dexmedetomidine HCl 400 MCG/100 ML MLS IVC SCH (15:42)
[2021-11-05] MEDS: Cholestyramine 4 GM POWD.PACK PO SCH (15:42)
[2021-11-05] MEDS: D5% in 0.9% NACL w KCl 20 MEQ/1,000 ML MLS IVC SCH (16:02)
[2021-11-06] MEDS: *HR* Labetalol 20 MG/4 ML SYRINGE IVP PRN ×2 (01:10→15:38)
[2021-11-06] MEDS: Artificial Tears SOLN 15 ML BOTTLE BOTH EYES SCH ×6 (03:27→20:05)
[2021-11-06] MEDS: Piperacillin/Tazobactam 3.375 GM in 0.9 % Sodium Chloride Mini Bag 100 ML IVPB SCH ×3 (04:57→20:54)
[2021-11-06] MEDS: D5% in 0.9% NACL w KCl 20 MEQ/1,000 ML MLS IVC SCH ×2 (05:02→20:04)
[2021-11-06 05:04] LABS: Basophils % 0.1 %; Hematocrit 48.5 % (35.3-44.9); Hemoglobin 15.1 g/dL (11.5-15.4); Immature Granulocytes % 0.6 % (0-4); Lymphocytes # 1.6 K/mcL (0.6-4.6); Lymphocytes % 7.9 %; Mean Corpuscular HGB Conc 31.1 g/dL (31.6-35.5); Mean Corpuscular Hemoglobin 25.2 pg (28.0-33.3); Mean Corpuscular Volume 80.8 fL (83.0-100.0); Monocytes # 1.4 K/mcL (0.0-1.3); Monocytes % 6.7 %; Neutrophils # 17.1 K/mcL (1.6-8.9); Platelet Count 136 K/mcL (140-400); Red Cell Distribution Width 17.1 % (11.5-14.5); Segmented Neutrophils % 84.7 %; White Blood Count 20.2 K/mcL (4.3-11.1)
[2021-11-06 05:08] LABS: VBG Ionized Calcium 1.14 mmol/L (1.15-1.35)
[2021-11-06 05:11] LABS: INR 1.7; Prothrombin Time 18.4 Seconds (9.4-12.1)
[2021-11-06 05:14] LABS: Activated Partial Thrombo Time 34.4 Seconds (26.0-36.0)
[2021-11-06 05:48] LABS: Albumin 2.9 g/dL (3.5-5.7); Albumin/Globulin Ratio 1.1 (1.1-2.2); Bilirubin,Total 3.7 mg/dL (0.3-1.0); Calcium 8.7 mg/dL (8.6-10.3); Globulin 2.7 g/dL (2.4-3.5); Magnesium 2.1 mg/dL (1.6-2.6); Potassium 3.6 mEq/L (3.5-5.1); Total Protein 5.6 g/dL (6.4-8.9)
[2021-11-06] MEDS: Chlorhexidine Rinse 15 ML MOUTHWASH MM SCH ×2 (07:42→20:13)
[2021-11-06] MEDS: Pantoprazole 40 MG VIAL IVP SCH (07:42)
[2021-11-06] MEDS: Cholestyramine 4 GM POWD.PACK PO SCH ×3 (07:43→15:36)
[2021-11-06] MEDS: Dexmedetomidine HCl 400 MCG/100 ML MLS IVC SCH (11:58)
[2021-11-06 18:43] LABS: Hematocrit 46.7 % (35.3-44.9); Hemoglobin 14.6 g/dL (11.5-15.4)
[2021-11-06 20:30] LABS: C.difficile Toxin A/B Gene PCR Not detected (Not detect); Campylobacter by PCR Not detected (Not detect); E. coli O157 by PCR Not detected (Not detect); Enteroaggregative E.coli(EAEC) Not detected (Not detect); Enteropathogenic E.coli(EPEC) Not detected (Not detect); Enterotoxigenic E.coli (ETEC) Not detected (Not detect); Plesiomonas shigelloides PCR Not detected (Not detect); Salmonella PCR Not detected (Not detect); Shig/EnteroinvasiveE coli EIEC Not detected (Not detect); Shigalike tox-prod E coli STEC Not detected (Not detect); Vibrio PCR Not detected (Not detect); Vibrio cholerae PCR Not detected (Not detect); Yersinia enterocolitica PCR Not detected (Not detect)
[2021-11-06 20:33] LABS: Adenovirus F 40/41 PCR Not detected (Not detect); Astrovirus PCR Not detected (Not detect); Cryptosporidium by PCR DETECTED (Not detect); Cyclospora cayetanensis PCR Not detected (Not detect); Entamoeba histolytica PCR Not detected (Not detect); Giardia lamblia PCR Not detected (Not detect); Norovirus GI/GII PCR Not detected (Not detect); Rotavirus A PCR Not detected (Not detect); Sapovirus PCR Not detected (Not detect)
[2021-11-07] MEDS: Artificial Tears SOLN 15 ML BOTTLE BOTH EYES SCH ×3 (00:37→11:08)
[2021-11-07] MEDS: *HR* Labetalol 20 MG/4 ML SYRINGE IVP PRN ×2 (01:59→04:49)
[2021-11-07] MEDS: Ondansetron 4 MG/2 ML VIAL IVP PRN ×2 (02:30→12:46)
[2021-11-07 02:55] LABS: Heparin anti-factor XA UFH < 0.04 IU/mL (0.30-0.70)
[2021-11-07 02:56] LABS: INR 1.8; Prothrombin Time 19.6 Seconds (9.4-12.1)
[2021-11-07 03:02] LABS: Basophils % 0.2 %; Eosinophils % 0.4 %; Mean Corpuscular HGB Conc 31.3 g/dL (31.6-35.5); Mean Corpuscular Hemoglobin 25.5 pg (28.0-33.3); Red Blood Count 5.49 M/mcL (3.82-4.97); Segmented Neutrophils % 75.9 %
[2021-11-07 03:04] LABS: Eosinophils # 0.1 K/mcL (0.0-0.6); Hematocrit 44.7 % (35.3-44.9); Immature Granulocytes % 0.6 % (0-4); Immature Platelets 10.4 % (1.1-6.1); Lymphocytes # 2.2 K/mcL (0.6-4.6); Lymphocytes % 15.1 %; Mean Corpuscular Volume 81.4 fL (83.0-100.0); Mean Platelet Volume 12.3 fL (9.4-12.4); Monocytes # 1.1 K/mcL (0.0-1.3); Monocytes % 7.8 %; Red Cell Distribution Width 16.4 % (11.5-14.5); White Blood Count 14.5 K/mcL (4.3-11.1)
[2021-11-07 03:18] LABS: Albumin 2.8 g/dL (3.5-5.7); Bilirubin,Total 3.7 mg/dL (0.3-1.0); Calcium 8.6 mg/dL (8.6-10.3); Globulin 2.9 g/dL (2.4-3.5); Potassium 3.5 mEq/L (3.5-5.1); Total Protein 5.7 g/dL (6.4-8.9)
[2021-11-07] MEDS ORDERED: *HR* Heparin 5,000 UNIT/ML VIAL IVP PRN ×2 (03:34)
[2021-11-07] MEDS ORDERED: Heparin 25,000UNIT/250ML 1/2NS 25,000 UNIT/250 ML IV.SOLN IVC SCH (03:45)
[2021-11-07 03:46] LABS: Platelet Count 98 K/mcL (140-400)
[2021-11-07 03:47] LABS: Platelet Estimate Decreased (Normal)
[2021-11-07] MEDS: Piperacillin/Tazobactam 3.375 GM in 0.9 % Sodium Chloride Mini Bag 100 ML IVPB SCH ×3 (04:48→21:21)
[2021-11-07] MEDS: Pantoprazole 40 MG VIAL IVP SCH (09:11)
[2021-11-07] MEDS: Cholestyramine 4 GM POWD.PACK PO SCH ×3 (09:12→17:38)
[2021-11-07] MEDS: Apixaban 5 MG TABLET PO SCH ×2 (10:35→21:21)
[2021-11-07] MEDS: D5% in 0.9% NACL w KCl 20 MEQ/1,000 ML MLS IVC SCH (11:07)
[2021-11-07] MEDS: Dexmedetomidine HCl 400 MCG/100 ML MLS IVC SCH (17:38)
[2021-11-07] MEDS: Gabapentin 400 MG CAPSULE PO SCH (21:21)
[2021-11-07] MEDS ORDERED: QUEtiapine Fumarate 300 MG TABLET PO SCH (21:45)
[2021-11-07] MEDS: QUEtiapine Fumarate 300 MG TABLET PO SCH (22:15)
[2021-11-07] MEDS: Acetaminophen 325 MG TABLET PO PRN (22:42)
[2021-11-08] MEDS: Piperacillin/Tazobactam 3.375 GM in 0.9 % Sodium Chloride Mini Bag 100 ML IVPB SCH ×3 (05:26→20:15)
[2021-11-08 06:16] LABS: Basophils # 0.1 K/mcL (0.0-0.2); Basophils % 0.7 %; Hematocrit 38.9 % (35.3-44.9); Immature Granulocytes % 3.9 % (0-4); Immature Platelets 13.3 % (1.1-6.1); Lymphocytes % 19.6 %; Mean Corpuscular HGB Conc 30.8 g/dL (31.6-35.5); Mean Corpuscular Hemoglobin 24.7 pg (28.0-33.3); Mean Platelet Volume 12.9 fL (9.4-12.4); Monocytes # 1.1 K/mcL (0.0-1.3); Monocytes % 7.6 %; Nucleated Red Blood Cells 0.1 /100 WBC (0); Red Blood Count 4.86 M/mcL (3.82-4.97); Red Cell Distribution Width 16.2 % (11.5-14.5); Segmented Neutrophils % 67.2 %; White Blood Count 14.5 K/mcL (4.3-11.1)
[2021-11-08 06:20] LABS: Eosinophils # 0.2 K/mcL (0.0-0.6); Lymphocytes # 2.8 K/mcL (0.6-4.6); Neutrophils # 9.7 K/mcL (1.6-8.9); Platelet Count 92 K/mcL (140-400)
[2021-11-08 07:30] LABS: Calcium 8.3 mg/dL (8.6-10.3); Potassium 3.6 mEq/L (3.5-5.1)
[2021-11-08] MEDS: Cholestyramine 4 GM POWD.PACK PO SCH ×3 (09:35→15:53)
[2021-11-08] MEDS: Metoprolol XL (24 HR) Succ 25 MG TAB.ER.24H PO SCH (09:35)
[2021-11-08] MEDS: Apixaban 5 MG TABLET PO SCH ×2 (09:35→20:14)
[2021-11-08] MEDS: Gabapentin 400 MG CAPSULE PO SCH ×4 (09:35→20:13)
[2021-11-08] MEDS: PARoxetine 20 MG TABLET PO SCH (09:35)
[2021-11-08] MEDS: Aspirin Enteric Coated 81 MG Tablet PO SCH (09:35)
[2021-11-08] MEDS: Pantoprazole 40 MG VIAL IVP SCH (09:36)
[2021-11-08] MEDS: Acetaminophen 325 MG TABLET PO PRN (20:13)
[2021-11-08] MEDS: QUEtiapine Fumarate 300 MG TABLET PO SCH (22:01)
[2021-11-08] MEDS: NITAZOXANIDE 500 MG PO SCH (22:01)
[2021-11-08] MEDS ORDERED: *HR* Metoprolol 5 MG/5 ML VIAL IVP PRN (23:00)
[2021-11-09 03:08] LABS: Red Cell Distribution Width 17.3 % (11.5-14.5)
[2021-11-09 03:10] LABS: Basophils # 0.1 K/mcL (0.0-0.2); Basophils % 0.7 %; Eosinophils # 0.2 K/mcL (0.0-0.6); Eosinophils % 1.6 %; Hematocrit 43.3 % (35.3-44.9); Hemoglobin 13.6 g/dL (11.5-15.4); Immature Platelets 14.4 % (1.1-6.1); Lymphocytes # 2.3 K/mcL (0.6-4.6); Lymphocytes % 16.3 %; Mean Corpuscular HGB Conc 31.4 g/dL (31.6-35.5); Mean Corpuscular Volume 79.6 fL (83.0-100.0); Monocytes # 1.1 K/mcL (0.0-1.3); Monocytes % 7.8 %; Neutrophils # 9.6 K/mcL (1.6-8.9); Nucleated Red Blood Cells 0.2 /100 WBC (0); Platelet Count 102 K/mcL (140-400); Red Blood Count 5.44 M/mcL (3.82-4.97); Segmented Neutrophils % 69.6 %; White Blood Count 13.8 K/mcL (4.3-11.1)
[2021-11-09 03:26] LABS: Calcium 8.5 mg/dL (8.6-10.3); Phosphorous 2.1 mg/dL (2.7-4.5); Potassium 3.6 mEq/L (3.5-5.1)
[2021-11-09 03:46] LABS: Thyroid Stimulating Hormone 1.519 mcIU/mL (0.340-5.600)
[2021-11-09] MEDS: Apixaban 5 MG TABLET PO SCH ×2 (08:50→20:02)
[2021-11-09] MEDS: Aspirin Enteric Coated 81 MG Tablet PO SCH (08:50)
[2021-11-09] MEDS: Gabapentin 400 MG CAPSULE PO SCH ×3 (08:50→20:02)
[2021-11-09] MEDS: Metoprolol XL (24 HR) Succ 25 MG TAB.ER.24H PO SCH (08:50)
[2021-11-09] MEDS: Cholestyramine 4 GM POWD.PACK PO SCH ×3 (08:58→16:31)
[2021-11-09] MEDS: PARoxetine 20 MG TABLET PO SCH (08:58)
[2021-11-09] MEDS: NITAZOXANIDE 500 MG PO SCH ×2 (08:59→20:02)
[2021-11-09] MEDS ORDERED: 0.9 % Sodium Chloride 1,000 ML IVC SCH (12:45)
[2021-11-09] MEDS: Acetaminophen 325 MG TABLET PO PRN (18:34)
[2021-11-09] MEDS: QUEtiapine Fumarate 300 MG TABLET PO SCH (20:02)
[2021-11-10 02:21] LABS: Hematocrit 40.7 % (35.3-44.9); Mean Corpuscular Hemoglobin 24.9 pg (28.0-33.3)
[2021-11-10 02:23] LABS: Basophils # 0.1 K/mcL (0.0-0.2); Basophils % 0.7 %; Eosinophils # 0.1 K/mcL (0.0-0.6); Hemoglobin 12.6 g/dL (11.5-15.4); Immature Granulocytes % 5.2 % (0-4); Immature Platelets 15.3 % (1.1-6.1); Lymphocytes # 2.4 K/mcL (0.6-4.6); Lymphocytes % 17.8 %; Mean Corpuscular Volume 80.4 fL (83.0-100.0); Monocytes # 1.3 K/mcL (0.0-1.3); Monocytes % 9.3 %; Platelet Count 103 K/mcL (140-400); Red Blood Count 5.06 M/mcL (3.82-4.97); Red Cell Distribution Width 17.4 % (11.5-14.5); White Blood Count 13.7 K/mcL (4.3-11.1)
[2021-11-10 02:30] LABS: Alanine Aminotransferase 205 Units/L (7-52); Albumin 2.7 g/dL (3.5-5.7); Alkaline Phosphatase 163 Units/L (34-104); Aspartate Amino Transferase 51 Units/L (13-39); BUN/Creatinine Ratio 19 (6-26); Bilirubin,Total 2.9 mg/dL (0.3-1.0); Blood Urea Nitrogen 22 mg/dL (6-20); Calcium 8.3 mg/dL (8.6-10.3); Carbon Dioxide 20 mEq/L (23-29); Chloride 103 mEq/L (98-107); Globulin 2.7 g/dL (2.4-3.5); Glucose 95 mg/dL (70-105); Osmolality,Calculated 277 (280-300); Sodium 132 mEq/L (136-145); Total Protein 5.4 g/dL (6.4-8.9); eGFR For African Americans > 60 (> 60); eGFR For Non-African Americans 50 (> 60)
[2021-11-10] MEDS: Apixaban 5 MG TABLET PO SCH ×2 (09:39→22:02)
[2021-11-10] MEDS: PARoxetine 20 MG TABLET PO SCH (09:39)
[2021-11-10] MEDS: Metoprolol XL (24 HR) Succ 25 MG TAB.ER.24H PO SCH (09:39)
[2021-11-10] MEDS: Cholestyramine 4 GM POWD.PACK PO SCH ×3 (09:39→16:17)
[2021-11-10] MEDS: Gabapentin 400 MG CAPSULE PO SCH ×3 (09:40→22:02)
[2021-11-10] MEDS: Aspirin Enteric Coated 81 MG Tablet PO SCH (09:40)
[2021-11-10] MEDS: NITAZOXANIDE 500 MG PO SCH ×2 (10:46→22:03)
[2021-11-10] MEDS: QUEtiapine Fumarate 300 MG TABLET PO SCH (22:02)
[2021-11-11 01:20] LABS: Hematocrit 41.9 % (35.3-44.9); Immature Platelets 17.8 % (1.1-6.1); Mean Corpuscular Hemoglobin 25.2 pg (28.0-33.3); Mean Corpuscular Volume 81.2 fL (83.0-100.0); Platelet Count 114 K/mcL (140-400); Red Blood Count 5.16 M/mcL (3.82-4.97); Red Cell Distribution Width 17.7 % (11.5-14.5); White Blood Count 13.8 K/mcL (4.3-11.1)
[2021-11-11 01:45] LABS: Albumin 2.9 g/dL (3.5-5.7); Bilirubin,Total 2.5 mg/dL (0.3-1.0); Calcium 8.4 mg/dL (8.6-10.3); Globulin 2.8 g/dL (2.4-3.5); Potassium 4.3 mEq/L (3.5-5.1); Total Protein 5.7 g/dL (6.4-8.9)
[2021-11-11 02:20] LABS: Lymphocytes # 3.3 K/mcL (0.6-4.6); Monocytes # 0.8 K/mcL (0.0-1.3); Neutrophils # 9.7 K/mcL (1.6-8.9)
[2021-11-11 02:21] LABS: Platelet Estimate Decreased (Normal)
[2021-11-11] MEDS: PARoxetine 20 MG TABLET PO SCH (08:42)
[2021-11-11] MEDS: Aspirin Enteric Coated 81 MG Tablet PO SCH (08:43)
[2021-11-11] MEDS: Gabapentin 400 MG CAPSULE PO SCH ×3 (08:43→21:33)
[2021-11-11] MEDS: Apixaban 5 MG TABLET PO SCH ×2 (08:43→21:32)
[2021-11-11] MEDS: Metoprolol XL (24 HR) Succ 25 MG TAB.ER.24H PO SCH (08:44)
[2021-11-11] MEDS: NITAZOXANIDE 500 MG PO SCH (08:44)
[2021-11-11] MEDS: Cholestyramine 4 GM POWD.PACK PO SCH ×3 (08:46→14:13)
[2021-11-11] MEDS ORDERED: Furosemide 40 MG TABLET PO SCH (15:45)
[2021-11-11] MEDS: Furosemide 40 MG TABLET PO SCH (16:40)
[2021-11-11] MEDS: QUEtiapine Fumarate 300 MG TABLET PO SCH (21:32)
[2021-11-12 03:27] LABS: Hematocrit 37.6 % (35.3-44.9)
[2021-11-12 03:29] LABS: Basophils # 0.1 K/mcL (0.0-0.2); Basophils % 0.6 %; Eosinophils # 0.1 K/mcL (0.0-0.6); Eosinophils % 0.7 %; Hemoglobin 11.9 g/dL (11.5-15.4); Immature Granulocytes % 4.7 % (0-4); Immature Platelets 14.5 % (1.1-6.1); Lymphocytes # 2.4 K/mcL (0.6-4.6); Lymphocytes % 19.1 %; Mean Corpuscular HGB Conc 31.6 g/dL (31.6-35.5); Mean Corpuscular Hemoglobin 25.3 pg (28.0-33.3); Mean Platelet Volume 12.8 fL (9.4-12.4); Monocytes % 7.7 %; Neutrophils # 8.3 K/mcL (1.6-8.9); Platelet Count 131 K/mcL (140-400); Red Cell Distribution Width 17.4 % (11.5-14.5); Segmented Neutrophils % 67.2 %; White Blood Count 12.3 K/mcL (4.3-11.1)
[2021-11-12 03:44] LABS: Albumin 2.8 g/dL (3.5-5.7); Bilirubin,Total 2.2 mg/dL (0.3-1.0); Calcium 8.4 mg/dL (8.6-10.3); Globulin 2.8 g/dL (2.4-3.5); Potassium 3.9 mEq/L (3.5-5.1); Total Protein 5.6 g/dL (6.4-8.9)
[2021-11-12] MEDS: Cholestyramine 4 GM POWD.PACK PO SCH ×2 (10:25→12:14)
[2021-11-12] MEDS: Aspirin Enteric Coated 81 MG Tablet PO SCH (10:26)
[2021-11-12] MEDS: Furosemide 40 MG TABLET PO SCH (10:26)
[2021-11-12] MEDS: Apixaban 5 MG TABLET PO SCH (10:26)
[2021-11-12] MEDS: Gabapentin 400 MG CAPSULE PO SCH ×2 (10:26→16:17)
[2021-11-12] MEDS: PARoxetine 20 MG TABLET PO SCH (10:27)
[2021-11-12] MEDS: Metoprolol XL (24 HR) Succ 25 MG TAB.ER.24H PO SCH (10:27)
[2021-11-12 10:42] VITALS: PULSE 100; TEMP 97.5; O2SAT 98
[2021-11-12 16:17] VITALS: BP 116/96
[2021-11-13 12:28] LABS: HCV Quant Log NOT DETECTED log IU/mL
[2021-11-14 09:37] LABS: HCV Quant Interpretation NOT DETECTED (Not Detected)
== END 2021-11-12 16:58 | disposition home health service (06) | DRG 720 ==
LOC: EMEROOARM 10:41 → ICNU 16:43 → SUATTDRO 16:43 → ICNU 17:26 → 2NENU 11-07 10:59
PROVIDERS: ADMIT Internal Medicine; ATTEND General Practice